=== PATIENT | female | born 1935 | race Caucasian/White ===

== ENCOUNTER 2021-12-23 08:14 | Outpatient (REF) | payer MEDICARE, SELFPAY ==
[2021-12-23 10:47] LABS: MANUAL DIFF FLAG NO
[2021-12-23 11:07] LABS: Basophils Percent Auto 0.4 % (0-2); Eosinophils Absolute Auto 0.1 X10*3/uL (0.0-0.4); Eosinophils Percent Auto 1.6 % (0-4); Hematocrit 37.9 % (37.0-47.0); Hemoglobin 12.3 g/dl (12.0-16.0); Imm Gran Abs Auto 0.01 X10*3/uL (0.00-0.03); Imm Gran Pct Auto 0.1 % (0.0-0.4); Lymphocytes Absolute Auto 1.9 X10*3/uL (1.2-4.9); Lymphocytes Percent Auto 25.4 % (20-40); Mean Corpuscular HGB Conc 32.5 g/dl (31.0-35.0); Mean Corpuscular Hemoglobin 30.4 pg (27.0-33.0); Mean Corpuscular Volume 93.6 fL (80.0-98.0); Mean Platelet Volume 10.9 fL (9.4-12.3); Monocytes Absolute Auto 0.8 X10*3/uL (0.1-1.2); Monocytes Percent Auto 10.4 % (2-11); Neutrophils Absolute Auto 4.7 x10*3/uL (2.0-8.3); Neutrophils Percent Auto 62.1 % (45-73); Platelet Count 244 X10*3/uL (160-400); Red Blood Count 4.05 X10*6/uL (4.20-5.50); Red Cell Distribution Width 12.1 % (11.0-16.0); White Blood Count 7.5 X10*3/uL (4.8-10.8)
[2021-12-23 11:25] LABS: Estimated Average Glucose 148 mg/dL; Hemoglobin A1c % 6.8 %
[2021-12-23 11:41] LABS: Creatinine Urine 83.84 mg/dL; Microalbum/Creatinine Ratio Ur 11.9 ug/mg cr
[2021-12-23 11:52] LABS: Alanine Aminotransferase 20 U/L (0-31); Alkaline Phosphatase 60 U/L (39-117); Anion Gap 15 (12-20); Aspartate Amino Transferase 22 U/L (5-31); Bilirubin Total 0.8 mg/dL (0.0-1.0); Blood Urea Nitrogen 24 mg/dL (9-16); Calcium 9.6 mg/dL (8.4-10.2); Carbon Dioxide 24 mmol/L (22-29); Chloride 107 mmol/L (96-108); Cholesterol 240 mg/dL; Estimated Glomerular Filt Rate 39; Glucose Random 157 mg/dL (60-115); HDL Cholesterol 51 mg/dL; LDL Cholesterol Calculated 166 mg/dl; Potassium 4.5 mmol/L (3.3-5.1); Sodium 141 mmol/L (135-145); Total Protein 7.1 g/dL (6.5-8.0); Triglycerides 118 mg/dL
[2021-12-23 12:11] LABS: TSH reflex Free T4 3.52 uIU/mL (0.32-4.0)
[2021-12-23 13:00] LABS: Vitamin B12 175 pg/mL (200-900)
== END 2021-12-23 08:15 | disposition home or self-care (01) ==
LOC: HO.10HDL 08:14
PROVIDERS: Visit Provider Internal Medicine
DX: E11.9 Type 2 diabetes mellitus without complications (principal); I47.1 Supraventricular tachycardia; Z91.19 Patient's noncompliance with other medical treatment and regimen
CPT/HCPCS: 36415; 80053; 80061; 82043; 82607; 83036; 84443; 85025

== ENCOUNTER 2022-12-28 16:48 | Outpatient (REF) | payer MEDICARE, SELFPAY ==
[2022-12-28 17:07] LABS: MANUAL DIFF FLAG NO
[2022-12-28 17:36] LABS: Basophils Percent Auto 0.5 % (0-2); Eosinophils Absolute Auto 0.1 X10*3/uL (0.0-0.4); Eosinophils Percent Auto 1.7 % (0-4); Hematocrit 39.2 % (37.0-47.0); Hemoglobin 13.2 g/dl (12.0-16.0); Imm Gran Abs Auto 0.05 X10*3/uL (0.00-0.03); Imm Gran Pct Auto 0.6 % (0.0-0.4); Lymphocytes Absolute Auto 3.1 X10*3/uL (1.2-4.9); Lymphocytes Percent Auto 36.7 % (20-40); Mean Corpuscular HGB Conc 33.7 g/dl (31.0-35.0); Mean Corpuscular Hemoglobin 31.6 pg (27.0-33.0); Mean Corpuscular Volume 93.8 fL (80.0-98.0); Mean Platelet Volume 10.9 fL (9.4-12.3); Monocytes Absolute Auto 0.8 X10*3/uL (0.1-1.2); Monocytes Percent Auto 9.7 % (2-11); Neutrophils Absolute Auto 4.3 x10*3/uL (2.0-8.3); Neutrophils Percent Auto 50.8 % (45-73); Platelet Count 213 X10*3/uL (160-400); Red Blood Count 4.18 X10*6/uL (4.20-5.50); Red Cell Distribution Width 11.8 % (11.0-16.0); White Blood Count 8.4 X10*3/uL (4.8-10.8)
[2022-12-28 17:38] LABS: Estimated Average Glucose 146 mg/dL; Hemoglobin A1c % 6.7 %
[2022-12-28 18:35] LABS: Alanine Aminotransferase 23 U/L (0-31); Albumin Level 4.2 g/dL (3.5-5.0); Alkaline Phosphatase 53 U/L (39-117); Anion Gap 18 (12-20); Aspartate Amino Transferase 19 U/L (5-31); Blood Urea Nitrogen 23 mg/dL (9-16); Calcium 9.8 mg/dL (8.4-10.2); Carbon Dioxide 24 mmol/L (22-29); Chloride 106 mmol/L (96-108); Cholesterol 159 mg/dL; Estimated Glomerular Filt Rate 33; Glucose Random 187 mg/dL (60-115); HDL Cholesterol 55 mg/dL; LDL Cholesterol Calculated 54 mg/dl; Microalbum/Creatinine Ratio Ur 36.2 ug/mg cr; Potassium 4.9 mmol/L (3.3-5.1); Sodium 143 mmol/L (135-145); Total Protein 7.5 g/dL (6.5-8.0); Triglycerides 250 mg/dL
[2022-12-28 19:00] LABS: Vitamin B12 407 pg/mL (200-900); Vitamin D 25-OH Total 13.5 ng/mL (>30)
== END 2022-12-28 16:49 | disposition home or self-care (01) ==
LOC: HO.LAB 16:48
PROVIDERS: PCP Internal Medicine; Visit Provider Internal Medicine
DX: I12.9 Hypertensive chronic kidney disease with stage 1 through stage 4 chronic kidney disease, or unspecified chronic kidney disease (principal); E11.22 Type 2 diabetes mellitus with diabetic chronic kidney disease; N18.9 Chronic kidney disease, unspecified; E78.00 Pure hypercholesterolemia, unspecified; N32.81 Overactive bladder; M81.8 Other osteoporosis without current pathological fracture
CPT/HCPCS: 36415; 80053; 80061; 82043; 82306; 82607; 83036; 85025

== ENCOUNTER 2023-07-18 12:07 | Outpatient (REF) | payer MEDICARE, SELFPAY ==
[2023-07-18 13:27] LABS: Estimated Average Glucose 154 mg/dL
[2023-07-18 13:36] LABS: Alanine Aminotransferase 13 U/L (0-31); Alkaline Phosphatase 52 U/L (39-117); Anion Gap 15 (12-20); Aspartate Amino Transferase 19 U/L (5-31); Bilirubin Total 0.7 mg/dL (0.0-1.0); Blood Urea Nitrogen 26 mg/dL (9-16); Calcium 9.2 mg/dL (8.4-10.2); Carbon Dioxide 24 mmol/L (22-29); Chloride 105 mmol/L (96-108); Estimated Glomerular Filt Rate 42; Glucose Random 127 mg/dL (60-115); Sodium 140 mmol/L (135-145); Total Protein 7.5 g/dL (6.5-8.0)
== END 2023-07-18 12:08 | disposition home or self-care (01) ==
LOC: HO.10HDL 12:07
PROVIDERS: Visit Provider Internal Medicine
DX: E78.00 Pure hypercholesterolemia, unspecified (principal); E11.22 Type 2 diabetes mellitus with diabetic chronic kidney disease; I12.9 Hypertensive chronic kidney disease with stage 1 through stage 4 chronic kidney disease, or unspecified chronic kidney disease; N18.9 Chronic kidney disease, unspecified
CPT/HCPCS: 36415; 80053; 83036

== ENCOUNTER 2024-08-15 08:34 | Outpatient (REF) | payer MEDICARE, SELFPAY ==
[2024-08-15 10:39] LABS: MANUAL DIFF FLAG NO
[2024-08-15 10:58] LABS: Estimated Average Glucose 157 mg/dL; Hemoglobin A1C 182.0744 umol/L; Hemoglobin A1c % 7.1 % (<6.0); Total Hemoglobin (HGBA1C) 3400.4198 umol/L
[2024-08-15 11:06] LABS: Alanine Aminotransferase 19 U/L (0-31); Albumin Level 3.9 g/dL (3.5-5.0); Alkaline Phosphatase 57 U/L (39-117); Anion Gap 13 (12-20); Aspartate Amino Transferase 24 U/L (5-31); Bilirubin Total 0.8 mg/dL (0.0-1.0); Blood Urea Nitrogen 29 mg/dL (9-16); Calcium 9.3 mg/dL (8.4-10.2); Carbon Dioxide 24 mmol/L (22-29); Chloride 109 mmol/L (96-108); Cholesterol 212 mg/dL (<200); Estimated Glomerular Filt Rate 42; Glucose Random 162 mg/dL (60-115); HDL Cholesterol 48 mg/dL (>40); LDL Cholesterol Calculated 139 mg/dL (<100); Potassium 4.4 mmol/L (3.3-5.1); Sodium 142 mmol/L (135-145); Total Protein 7.3 g/dL (6.5-8.0); Triglycerides 129 mg/dL (<150)
[2024-08-15 11:17] LABS: Microalbum/Creatinine Ratio Ur 61.5 ug/mg cr (<30)
[2024-08-15 11:20] LABS: Basophils Percent Auto 0.4 % (0-2); Eosinophils Absolute Auto 0.1 X10*3/uL (0.0-0.4); Eosinophils Percent Auto 1.5 % (0-4); Hematocrit 37.6 % (37.0-47.0); Hemoglobin 12.8 g/dl (12.0-16.0); Imm Gran Abs Auto 0.02 X10*3/uL (0.00-0.03); Imm Gran Pct Auto 0.3 % (0.0-0.4); Lymphocytes Absolute Auto 2.4 X10*3/uL (1.2-4.9); Mean Corpuscular Hemoglobin 31.3 pg (27.0-33.0); Mean Corpuscular Volume 91.9 fL (80.0-98.0); Mean Platelet Volume 11.4 fL (9.4-12.3); Monocytes Absolute Auto 0.7 X10*3/uL (0.1-1.2); Monocytes Percent Auto 10.9 % (2-11); Neutrophils Absolute Auto 3.5 x10*3/uL (2.0-8.3); Neutrophils Percent Auto 51.9 % (45-73); Platelet Count 216 X10*3/uL (160-400); Red Blood Count 4.09 X10*6/uL (4.20-5.50); Red Cell Distribution Width 11.9 % (11.0-16.0); White Blood Count 6.8 X10*3/uL (4.8-10.8)
[2024-08-15 11:29] LABS: Vitamin D 25-OH Total 14.1 ng/mL (>30)
== END 2024-08-15 08:35 | disposition home or self-care (01) ==
LOC: HO.10HDL 08:34
PROVIDERS: Visit Provider Internal Medicine
DX: D51.9 Vitamin B12 deficiency anemia, unspecified (principal); E11.22 Type 2 diabetes mellitus with diabetic chronic kidney disease; E78.2 Mixed hyperlipidemia; I10 Essential (primary) hypertension; R80.8 Other proteinuria
CPT/HCPCS: 36415; 80053; 80061; 82043; 82306; 82570; 83036; 85025

== ENCOUNTER 2024-11-09 08:18 | Outpatient (REF) | payer MEDICARE, SELFPAY ==
--- OUTSIDE RECORDS SUMMARY | 2024-11-09 08:23 | XMS_ITS | Data Portability ---
Author Organization [place] [facility] Address [address] [place] [address] Care Team Providers Care Independent Marketing Consultant Name Role Phone MARKCYNTHIA ROSSY Primary Care Provider [phone] [facility] OTHER Assessment Encounter Date Assessment Date Assessment LastModified by Organization Details LastModified Time 01/03/2022 01/03/2022 Ms. Busch is an 86 yo female new to whose CC is I have the COVID and I have no energy . Denies Fever chills, nausea, vomiting, no diarrhea. No Chest pain, palpitations, no pain with respirations, no chest tightness. No peripheral edema. She sts she was exposed by her sister whom she lives with, her daughter wanted her to do a rapid test because of her fatigue. DDX for fatigue considered but not limited to: IRAM, CHF, PE doubtful no chest pain, peripheral edema, pain with respirations, no dyspnea, no POPE. Anemia, no conjunctival pallor, no GI bleeding, Infection: pneumonia is also doubtful, no fever, chills, she has a mild cough usually dry . No urinary symptoms, [email or web address] Not available 01/03/2022 13:38:15 Plan of Treatment Reminders Order Date Submit Date Provider Last Modified By Organization Details Last Modified Time Details Appointments None record ed. Lab None record ed. Referral None record ed. Procedures None record ed. Surgeries None record ed. Imaging None record ed. Medication Orders None record ed. Patient TargetsNo targets recorded. Patient InstructionsNo instructions recorded. Reason for Referral None Reported. Medical Equipment None Reported. Allergies No known drug allergies Medications Name Sig Start Date Stop Date Status Note LastModified by Organization Details LastModified Time metformin 500 mg tablet TAKE 1 TABLET TWICE DAILY BY MOUTH active Not Available Not Available No t Available metoprolol tartrate 50 mg tablet TAKE 1 TABLET BY MOUTH TWICE A DAY active Not Available Not Available No t Available Flowflex COVID-19 Antigen Home Test kit USE DIRECTED ON BOX. active Not Available Not Available No t Available Vitals Date Recorded Heart rate Oxygen saturation Oxygen saturation in Arterial blood by Pulse oximetry Body temperature Respiratory rate Heart rate Systolic blood pressure Diastolic blood pressure Provider Name and Address Organization Details Last Updated DateTime 2 98 /min 97 % 97 % 97.6 [degF] 18 /min 82 /min 124 mm[Hg] 76 mm[Hg] Not Available [facility] 11:55:18 Social History Question Answer Notes LastModified by Organizat ion Details LastModified Time Tobacco Smoking Status Never Smoker TINA Perry [address], [place], [address], [place] [facility] 01/03/2022 11:52:37 What Is Your Level Of Alcohol Consumption? None [email or web address] Information not available 01/03/2022 What Is Your Code Status? Full Code [email or web address] Information not available 01/03/2022 Within The Past 12 Months, Has It Happened That The Food You Bought Just Didn't Last And You Didn't Have Money To Get More. No [email or web address] Information not available 01/03/2022 Fall Risk: Do You Feel Unsteady When Standing Or Walking? No [email or web address] Information not available 01/03/2022 We Know That How And When People Interact With Friends And Family Can Be Very Different From Person To Person. How Often Do You Have The Opportunity To See Or Talk To People That You Care About And Feel Close To? (Ex: Talking To Friends On The Phone Or Visiting Friends Or Family Or Going To [place] Or Club Meetings) 5 Or More Times Per Week [email or web address] Information not available 01/03/2022 Excessive Alcohol Or Drug Use No [email or web address] Information not available 01/03/2022 Does This Patient Have A PCP? Yes [email or web address] Information not available 01/03/2022 Has The Patient Seen Their PCP In The Past 6 Months? Yes [email or web address] Information not available 01/03/2022 Is This Patient In Hospice? No [email or web address] Information not available 01/03/2022 We Know From Many Of Our Patients That Covering All Of Their Costs Can Be Difficult At Times. This Can Cause Stress And Impact Health. In The Past Year, Have You Been Unable To Get Any Of The Following When It Was Really Needed? No Information not available 01/03/2022 What Is Your Housing Situation Today? I Have Housing [email or web address] Information not available 01/03/2022 Would You Like Help Connecting To Resources? None [email or web address] Information not available 01/03/2022 Sex: Unknown Functional Status None recorded. Mental Status None recorded. Family History Nothing Reported Notes:Sister with heart dise ase, mild PA at 79 Medical History Condition Response Coronary Artery Disease N COPD N Depression N Hypothyroidism Y A-fib N Cancer Y Stroke N High Cholesterol N Rheumatoid Arthritis N Kidney Disease N Parkinson's Disease N Diabetes Y CHF N Dementia N Asthma N Pulmonary Embolism N Hypertension N Osteoporosis N Gynecological HistoryNo gynecological history recorded. Obstetrics History GPAL:G 0 P 0 0 0 0 Past Encounters Encounter ID Performer Location Encounter Start Date Encounter Closed Date Diagnosis/Indication Diagnosis SNOMED-CT Code Diagnosis ICD10 Code Diagnosis Note [id number] TINA Perry [facility] [address] [place] [address] 01/03/2022 11:18:08 01/11/2022 18:59:11 COVID-19 [id number] U07.1 exposed to her sister who has COVID , she has been asymptomat ic except for some fatigue , and a mild typically non-produc tive cough.She looks well, non-toxic appearing, PE was all WNL. Follow up with her PCP as planned on the , sooner if any changes or concerns or give us a call. Health Concerns Section Related Observation LastModified by Organization Detai ls LastModified Time None Recorded Concern Status LastModified by Organization Details LastModified Time None Recorded Advance Directives Directive None Recorded Payers Encounter Date Sequence Insurance Name Policy Number Policy Ramirez Covered Member ID Ramirez Member ID Guarantor Name 01/03/2022 1 [facility] - MEDICARE PREFERRED (MEDICARE REPLACEMENT HMO) [id number] Mary Busch [id number] Mary Narayan Notes Date Note Type Note Provider Name and Address Organization Details Recorded Time 01/03/2022 text/html 11 days ago test ed positive for COVID, her sister has COVID . Mary was asymptomaticand did not want to be checked, but her daughter encouraged her to check and it was positive. No fever, chills, she has a little cough, with production at times of phlegm. She had a pain in her ear left, she took a tylenol and it went away. She is eating 3 meals a day, her BS fasting has been running 118 - 120. She is feeling fatigued, TINA Perry [address], [place], [address], [place] [facility] 01/03/2022 13:43:12 OBGyn Episode No OBEpisode recorded.
[2024-11-09 11:17] LABS: Estimated Average Glucose 151 mg/dL; Hemoglobin A1C 207.4843 umol/L; Hemoglobin A1c % 6.9 % (<6.0)
[2024-11-09 11:31] LABS: Anion Gap 13 (12-20); Blood Urea Nitrogen 30 mg/dL (9-16); Calcium 9.5 mg/dL (8.4-10.2); Carbon Dioxide 25 mmol/L (22-29); Chloride 109 mmol/L (96-108); Estimated Glomerular Filt Rate 52; Glucose Random 140 mg/dL (60-115); Potassium 4.4 mmol/L (3.3-5.1); Sodium 143 mmol/L (135-145)
[2024-11-09 11:32] LABS: Alanine Aminotransferase 19 U/L (0-31); Albumin Level 3.9 g/dL (3.5-5.0); Alkaline Phosphatase 45 U/L (39-117); Aspartate Amino Transferase 25 U/L (5-31); Bilirubin Total 0.8 mg/dL (0.0-1.0); Cholesterol 140 mg/dL (<200); HDL Cholesterol 53 mg/dL (>40); LDL Cholesterol Calculated 70 mg/dL (<100); Total Protein 6.9 g/dL (6.5-8.0); Triglycerides 89 mg/dL (<150)
== END 2024-11-09 08:19 | disposition home or self-care (01) ==
LOC: HO.10HDL 08:18
PROVIDERS: Visit Provider Internal Medicine
DX: E78.2 Mixed hyperlipidemia (principal); I12.9 Hypertensive chronic kidney disease with stage 1 through stage 4 chronic kidney disease, or unspecified chronic kidney disease; E11.22 Type 2 diabetes mellitus with diabetic chronic kidney disease; R80.8 Other proteinuria
CPT/HCPCS: 36415; 80053; 80061; 83036

== ENCOUNTER 2025-03-25 08:29 | Outpatient (REF) | payer MEDICARE, SELFPAY ==
[2025-03-25 11:07] LABS: Hemoglobin A1C 169.0738 umol/L; Total Hemoglobin (HGBA1C) 3160.8541 umol/L
[2025-03-25 11:22] LABS: Alanine Aminotransferase 25 U/L (0-31); Albumin Level 4.0 g/dL (3.5-5.0); Alkaline Phosphatase 49 U/L (39-117); Anion Gap 14 (12-20); Aspartate Amino Transferase 31 U/L (5-31); Blood Urea Nitrogen 28 mg/dL (9-16); Calcium 10.2 mg/dL (8.4-10.2); Carbon Dioxide 23 mmol/L (22-29); Chloride 108 mmol/L (96-108); Estimated Glomerular Filt Rate 44; Potassium 4.2 mmol/L (3.3-5.1); Sodium 141 mmol/L (135-145); Total Protein 6.9 g/dL (6.5-8.0)
== END 2025-03-25 08:30 | disposition home or self-care (01) ==
LOC: HO.10HDL 08:29
PROVIDERS: Visit Provider Internal Medicine
DX: I12.9 Hypertensive chronic kidney disease with stage 1 through stage 4 chronic kidney disease, or unspecified chronic kidney disease (principal); E11.22 Type 2 diabetes mellitus with diabetic chronic kidney disease; N18.9 Chronic kidney disease, unspecified; R80.8 Other proteinuria; E78.00 Pure hypercholesterolemia, unspecified
CPT/HCPCS: 36415; 80053; 83036

== ENCOUNTER 2025-06-24 08:55 | Outpatient (REF) | payer MEDICARE, SELFPAY ==
[2025-06-24 11:23] LABS: Alanine Aminotransferase 14 U/L (0-31); Albumin Level 4.2 g/dL (3.5-5.0); Alkaline Phosphatase 51 U/L (39-117); Anion Gap 16 (12-20); Aspartate Amino Transferase 22 U/L (5-31); Blood Urea Nitrogen 31 mg/dL (9-16); Calcium 9.4 mg/dL (8.4-10.2); Carbon Dioxide 23 mmol/L (22-29); Chloride 107 mmol/L (96-108); Estimated Glomerular Filt Rate 41; Potassium 4.1 mmol/L (3.3-5.1); Sodium 142 mmol/L (135-145); Total Protein 7.4 g/dL (6.5-8.0)
== END 2025-06-24 08:56 | disposition home or self-care (01) ==
LOC: HO.10HDL 08:55
PROVIDERS: Visit Provider Internal Medicine
DX: E78.00 Pure hypercholesterolemia, unspecified (principal); E11.22 Type 2 diabetes mellitus with diabetic chronic kidney disease; I12.9 Hypertensive chronic kidney disease with stage 1 through stage 4 chronic kidney disease, or unspecified chronic kidney disease; N18.9 Chronic kidney disease, unspecified; R80.8 Other proteinuria
CPT/HCPCS: 36415; 80053; 83036